=== PATIENT | male | born 1995 | race African-American/Black ===

== ENCOUNTER 2021-05-26 06:35 | Emergency (ER) | payer OTHER ==
[~2021-05-26] VITALS: Ht 188 cm; Wt 119.0 kg
[2021-05-26] MEDS ORDERED: ASPIRIN 325MG EC TABLET PO ONE (07:15)
[2021-05-26 08:58] LABS: BASOPHILS % 0.7 % (0.0-2.0); EOSINOPHILS % 0.8 % (0.0-5.0); HEMATOCRIT. 41.7 % (42.0-52.0); HEMOGLOBIN. 13.9 g/dL (14.0-18.0); MEAN CORPUSCULAR HEMOGLOBIN 30.3 pg (28.0-32.0); MEAN PLATELET VOLUME 8.7 fl (7.4-10.4); MONOCYTES % 8.3 % (2.0-8.0); NEUTROPHILS % 72.2 % (40.0-76.0); PLATELET 329 x1000/uL (130-400); RED BLOOD CELL COUNT 4.58 mill/uL (4.7-6.1)
[2021-05-26 09:05] LABS: CHLORIDE 97 mEq/L (98-107)
[2021-05-26] MEDS ORDERED: LACTATED RINGERS 1,000 ML IV SCH ×2 (10:45→12:15)
[2021-05-26 11:56] LABS: CREATINE KINASE 5337 IU/L (39-308)
[2021-05-26 13:30] VITALS: BP 120/68
[2021-05-26] MEDS ORDERED: OLAN2.5T29 MT (22:06)
[2021-05-28] MEDS ORDERED: NICO-645 TP (12:35)
== END 2021-05-26 14:01 | disposition left against medical advice (07) ==
LOC: ER 06:35 → CANBEDREQ 17:41
DX: M62.82 Rhabdomyolysis (principal); F15.10 Other stimulant abuse, uncomplicated; R94.5 Abnormal results of liver function studies; R74.01 Elevation of levels of liver transaminase levels; R94.31 Abnormal electrocardiogram [ECG] [EKG]; Z20.822 Contact with and (suspected) exposure to COVID-19
CPT/HCPCS: 36415; 71045; 80053; 82550; 82553; 83880; 84484; 85025; 87426; 93005; 96360; 99291